=== PATIENT | female | born 2000 ===

== ENCOUNTER 2024-10-23 16:03 | Outpatient (AMB) | payer BC, SELFPAY ==
--- NOTE | 2024-10-23 16:26 | MHC.OFFWIV ---
Intake Vital Signs 10/23/24 16:27 Height 5 ft 3 in Weight 124 lb BMI 22.0 BP 104/62 Blood Pressure Location Lt brachial Position Sitting Respiration 16 Pulse 75 Pulse Source Pulse Oximeter Temp 98.3 F Temp Source Oral Pulse Oximetry (%) 100 Oxygen Delivery Method Room Air Intake Visit Reasons: EST/SORE THROAT Intake Note: sore throat Allergies No Known Allergies Allergy (Verified 10/23/24 16:27) Medication List - Last Reconciled 10/23/24 by Rich Lara MD amoxicillin 500 mg (10 mL) PO BID 10 days HPI EST/SORE THROAT HPI Details Patient?presents?with?several?days?of?worsening?sore?throat. She?says?that?hurts?to?swallow No?difficulty?with?breathing?and?no?stridor Has?not?tried?any?medications. Has?not?noticed?a?fever?but?also?does?not?have?any?cough Does?anterior?cervical?tenderness?and?pain Review of Systems Const Details: See HPI Physical Exam Vital Signs: Last Vital Signs Temp 98.3 F 10/23/24 16:27 Pulse 75 10/23/24 16:27 Resp 16 10/23/24 16:27 BP 104/62 10/23/24 16:27 Pulse Ox 100 10/23/24 16:27 Oxygen Delivery Method Room Air 10/23/24 16:27 BMI result Body Mass Index 22.0 HEENT Other: Marked?posterior?pharyngeal?erythema?and?some?patchy?exudates. Prominent?anterior?cervical?chain?lymphadenitis?with?tenderness Assessment & Plan Assessment & Plan (1) Strep pharyngitis: Code(s): J02.0 - Streptococcal pharyngitis Plan: Start?amoxicillin.??Patient?requests?liquid?due?to?pain?with?swallowing Warm?saltwater?gargles Can?use?Tylenol?for?additional?pain Finished?all?antibiotic?unless?there?is?a?problem.??Call?for?any?problems. Medications: New amoxicillin 500 mg (10 mL) PO BID 10 days 200 mL 0RF Coding Level of Care Code New Pt Level 3 (21328) Diagnoses Strep pharyngitis J02.0
[2024-10-23 16:27] VITALS: BP 104/62; PULSE 75; RESP 16; TEMP 36.8; O2SAT 100; BMI 22.0
== END 2024-10-23 16:44 | disposition home or self-care (01) ==
PROVIDERS: Visit Provider Family Medicine
DX: J02.0 Streptococcal pharyngitis (principal)

== ENCOUNTER → 2024-10-23 16:03 | Outpatient (BNVA) | payer SELFPAY | PROVIDERS: Visit Provider Family Medicine ==